=== PATIENT | female | born 1955 | race African-American/Black ===

== ENCOUNTER → 2016-09-12 | Outpatient (CLI) | payer OTHER ==
--- NOTE | 2016-09-13 13:54 | MAMMOGRAPHY REPORT ---
BILATERAL DIGITAL SCREENING MAMMOGRAM TOMOSYNTHESIS WITH CAD: 09/12/2016 CLINICAL HISTORY: Baseline examination. TECHNIQUE: Bilateral breast tomosynthesis in addition to standard 2D mammography was performed. Curr ent study was also evaluated with a Computer Aided Detection (CAD) system. COMPARISON: No prior exams were available for comparison. BREAST COMPOSITION: There are scattered areas of fibroglandular density in both breasts. FINDINGS: There is a 5 mm nodular asymmetry in the posterior left breast, along the posterior nippl e line on the CC view. This is not clearly seen on the MLO view or corresponding tomosynthesis imag es. Although it could represent a cyst, additional spot compression tomosynthesis views and possibl y ultrasound are recommended. No other suspicious mass, architectural distortion or cluster of microcalcifications is seen. IMPRESSION: ACR BI-RADS CATEGORY 0: INCOMPLETE EVALUATION: NEED ADDITIONAL IMAGING EVALUATION The 5 mm nodular asymmetry in the posterior left breast needs additional evaluation. The patient will be called to schedule an appointment. Approximately 10% of breast cancers are not detected with mammography. A negative mammographic repor t should not delay biopsy if a clinically suggestive mass is present. Nelida Eason M.D. ay/:09/12/2016 16:58:55 Wood Setter: Cindy ROLON)(Walter), [facility] letter sent: Addl Imaging 0 BI-RADS Code: ACR BI-RADS Category 0: Incomplete Evaluation: Need Additional Imaging Evaluation
== END | disposition home or self-care (01) ==
LOC: C.MAMM 12:25
PROVIDERS: ATTEND Obstetrics & Gynecology Gynecology
DX: Z12.31 Encounter for screening mammogram for malignant neoplasm of breast (principal); N64.89 Other specified disorders of breast

== ENCOUNTER → 2016-09-26 | Outpatient (CLI) | payer OTHER ==
--- NOTE | 2016-09-26 13:07 | MAMMOGRAPHY REPORT ---
UNILATERAL LEFT DIGITAL DIAGNOSTIC MAMMOGRAM TOMOSYNTHESIS AND TARGETED LEFT ULTRASOUND: 09/26/2016 CLINICAL HISTORY: 61-year-old woman called back from baseline screening mammogram for a small 5 mm n odular asymmetry in the posterior left breast, along the posterior nipple line on the CC view. TECHNIQUE: Spot compression tomosynthesis left CC and MLO views were obtained. COMPARISON: Comparison is made to exam dated: 09/12/2016 mammogram - [facility]. BREAST COMPOSITION: There are scattered areas of fibroglandular density in the left breast. FINDINGS: On the spot compression left CC tomosynthesis images, there is persistence of a low-densit y 5.5 mm nodular asymmetry in the middle one third of the breast, along the posterior nipple line. No associated architectural distortion or microcalcification. This could possibly represent normal fibroglandular tissue, but no prior mammograms are available to ensure stability. This is not clear ly seen on the spot compression MLO views for localization purposes. Further evaluation with ultras ound was performed. Targeted ultrasound was performed in the left breast from the 12:00 through 6:00 axes, but also incl uding the retroareolar breast, 5:00 and 7:00 axes. Sonographically normal tissue is identified with out a discrete solid or cystic mass. IMPRESSION: ACR-BI-RADS CATEGORY 3: PROBABLY BENIGN, TARGETED ULTRASOUND ACR-BI-RADS CATEGORY 3: RI OBABLY BENIGN There is persistence of a low density 5 mm nodular asymmetry in the middle one third of the left pita ast, only seen on the CC view, without suspicious sonographic correlate. Although this could repres ent normal fibroglandular tissue, no prior mammograms are available to ensure stability and therefor e a short interval follow-up diagnostic left mammogram and possible ultrasound is recommended in [address] [place] [address]. These results and recommendations were discussed with the patient and her son at the time of the exa m. They tentatively scheduled a follow-up appointment prior to leaving the department. Approximately 10% of breast cancers are not detected with mammography. A negative mammographic repor t should not delay biopsy if a clinically suggestive mass is present. Nelida Eason M.D. ay/:09/26/2016 12:10:40 Bar Waiter/Waitress: Kandy KELLOGG(Imelda)(Walter), [facility] letter sent: Follow Up Recommended 3 BI-RADS Code: ACR-BI-RADS Category 3: Probably Benign Ultrasound BI-RADS: ACR-BI-RADS Category 3: P robably Benign
== END | disposition home or self-care (01) ==
LOC: C.MAMM 09:54
PROVIDERS: ATTEND Obstetrics & Gynecology Gynecology
DX: R92.8 Other abnormal and inconclusive findings on diagnostic imaging of breast (principal)

== ENCOUNTER → 2016-09-27 | Outpatient (CLI) | payer OTHER | END | disposition home or self-care (01) | LOC: C.LABSPEC 09:34 | PROVIDERS: ATTEND Obstetrics & Gynecology Gynecology | DX: Z13.9 Encounter for screening, unspecified (principal); Z87.898 Personal history of other specified conditions ==